=== PATIENT | male | born 2000 | race Caucasian/White ===

== ENCOUNTER 2020-07-23 12:36 | Outpatient (REF) | payer OTHER, SELFPAY ==
--- NOTE | ~2020-07-23 | CT_ITS ---
EXAMINATION: CT CHEST, ABDOMEN AND PELVIS WITH IV CONTRAST CLINICAL INFORMATION: Lymphadenopathy. COMPARISON: None TECHNIQUE: Axial images through the chest, abdomen and pelvis following oral and IV contrast. The patient received 85 mL Omnipaque 350 intravenous contrast. Sagittal and coronal reconstructions were performed on the technologist's workstation. Patient dose: 133 + 327 mGy-cm. This CT examination was performed using dose optimization techniques as appropriate, variously including the following: *Automated exposure control *Adjustment of mA and/or kV according to patient size (this includes techniques or standardized protocols for targeted exams where dose is matched to indication/reason for exam; i.e. extremities or head) *Use of iterative reconstruction technique FINDINGS: CHEST: There are enlarged bilateral lower cervical lymph nodes. The largest lymph node is a left supraclavicular lymph node measuring 3.1 x 3.4 cm axial image 5 series 3. There is diffuse mediastinal adenopathy seen in the anterior superior mediastinum. The largest lymph node is an AP window lymph node measuring 4 cm axial image 25 series 3. There is a prominent left anterior diaphragmatic or cardiophrenic angle lymph node measuring 1 cm axial image 15 series 3. There is no subcarinal lymphadenopathy. There is no hilar lymphadenopathy. The heart does not appear enlarged. There is no pericardial effusion. The thoracic aorta is normal in caliber. The visualized thyroid gland is normal. No chest wall mass or enlarged axillary lymph nodes are seen. The lungs are clear. There is no pleural effusion or pleural thickening. ABDOMEN AND PELVIS: The liver, gallbladder, spleen, pancreas, adrenal glands, and kidneys are normal. There is stool throughout the colon. Small and large bowel is otherwise normal. The appendix is normal. The stomach is normal. The bladder is normal. The prostate gland is normal. There is no ascites. There is no adenopathy in the abdomen and pelvis. No hernia is seen. Vascular structures are unremarkable. There is a lucency with vertical striations in the right side of the S1 vertebral body probably representing a hemangioma. There is a lucency in the left iliac crest measuring 0.6 x 1.6 cm axial image 56 series 3 of uncertain etiology. There is a small sclerotic focus in the anterior T7 vertebral body. CT/CT abdomen pelvis w con IMPRESSION: CHEST: Bilateral lower cervical and superior mediastinal lymphadenopathy. Prominent left cardiophrenic angle or anterior diaphragmatic lymph node. No other adenopathy is seen. Lymphoproliferative process should be considered. ABDOMEN AND PELVIS: Stool throughout the colon suggestive of constipation.
[2020-07-23] MEDS: iohexoL 350 MG/ML 100 ML INFUS..BTL IV (16:53)
== END 2020-07-23 12:37 | disposition home or self-care (01) ==
LOC: HO.CT 12:36
PROVIDERS: PCP Emergency Medicine; Visit Provider Emergency Medicine
DX: L04.0 Acute lymphadenitis of face, head and neck (principal)
CPT/HCPCS: 71260; 74177; Q9967